=== PATIENT | male | born 1965 | race Caucasian/White ===

== ENCOUNTER → 2019-08-03 11:14 | Outpatient (BNVA) | payer MEDICARE, MEDICAID, SELFPAY | PROVIDERS: Family Provider Nurse Practitioner Family; PCP Nurse Practitioner Family; Visit Provider Nurse Practitioner | DX: F31.81 Bipolar II disorder (principal); F17.210 Nicotine dependence, cigarettes, uncomplicated | CPT/HCPCS: 99214; 99215 ==

== ENCOUNTER 2019-08-15 16:43 | Inpatient (IN) | payer MEDICARE, MEDICAID, SELFPAY ==
[2019-08-15 16:44] VITALS: BP 143/109; PULSE 106; RESP 18; TEMP 36.8; O2SAT 94; BMI 33.2
--- NOTE | 2019-08-15 16:56 | ED_ITS ---
Entered by Jessica Banegas, acting as scribe for Yvonne Almaguer MD, [facility] [place] HPI - Psych General: Chief Complaint: Psychiatric Symptoms Stated Complaint: SI Time Seen by Provider: 08/15/19 16:56 Source: patient Mode of arrival: EMS Limitations: no limitations History of Present Illness: HPI Narrative: 53 yo Male presents to ED with complaint of suicidal ideation. Pt states that he wants to talk to his psychiatrist because he was thinking about killing himself. Pt states that every cops in the community was there and he is here again. Pt states he doesn't want to discuss his plan and he tried for 6 days last time but some doctors brought him back. Claims he was in an ICU for 5 days. Pt states that he will kill himself in a few days. Pt states that he knows how to bullshit doctors and he will tell them he is feeling better so he can get out of here and get his plan together to kill himself. complaint: suicidal ideation Duration: constant and getting worse History of same: Yes Relieving factors: none Exacerbating factors: none Associated psychiatric symptoms: suicidal ideation Associated symptoms: Reports suicidal ideation Treatments prior to arrival: none If self harm: admits thoughts of self harm Review of Systems General: Reports: 10 or more systems reviewed and unremarkable except in HPI and below Const: Denies: fever, chills or body aches Eyes: Denies: change in vision, blurry vision or blind spots ENMT: Denies: throat pain Card: Denies: chest pain, palpitations, irregular heart rhythm, edema or swelling of feet/ankles Resp: Denies: shortness of breath, productive cough or non-productive cough GI: Denies: abdominal pain, nausea or vomiting : Denies: flank pain, difficulty urinating, painful urination, urinary frequency or urinary urgency Musc: Denies: neck pain, back pain, extremity pain or extremity swelling Skin/Breast: Denies: rash, itching or redness Neuro: Denies: headache, numbness in extremities or weakness in extremities Psych: Reports: suicidal ideation PFS ED PFSH: Statuses (acute, chronic, etc) shown below reflect problem list status as previously entered and may not be historically accurate Medical History Alcohol dependence, in remission (Acute) Bipolar II disorder (Acute) Nicotine dependence, cigarettes, uncomplicated (Acute) Social History Smoking and tobacco status: current every day smoker cigarettes Packs smoked per day: 1 Years cigarettes smoked: 40 Smoking risk assessment/counseling performed?: Yes Tobacco counseling given: counseling >3 minutes Alcohol intake: never Physical Exam Const: COMMON NORMALS: no apparent distress, average body habitus, oriented x3, no limitations, healthy appearing, alert and well nourished HENMT: COMMON NORMALS: normocephalic, head/scalp atraumatic, hearing grossly normal bilaterally, external ears normal, EAC's normal, TM's normal bilaterally, external nose normal, nasal mucous membranes and turbinates normal, moist oral mucous membranes, oropharynx normal, dentition normal and gingiva normal HEAD & SCALP: normocephalic and atraumatic NOSE: external nose normal and nasal mucous membranes and turbinates normal EXTERNAL EAR: Yes external ears normal EXTERNAL AUDITORY CANAL: EAC's normal TYMPANIC MEMBRANE: TM's normal bilaterally Eye: COMMON NORMALS: PERRL, EOMs intact bilaterally, conjunctivae normal, no scleral icterus, no papilledema, normal visual melendrez by confrontation and fundi normal bilaterally CONJUNCTIVA: Yes conjunctivae normal PUPIL: Yes PERRL DIRECT OPHTHALMOSCOPY: Yes no papilledema and Yes fundi normal bilaterally Neck/C-Spine: COMMON NORMALS: full ROM, supple, no meningeal signs, no JVD and no carotid bruits Chest: COMMONS NORMALS: inspection of chest normal and palpation of chest normal Resp: COMMON NORMALS: normal respiratory effort, no retractions, no use of accessory muscles, clear to auscultation bilaterally and percussion normal AUSCULTATION: clear to auscultation bilaterally PERCUSSION: percussion normal Cardio: COMMON NORMALS: no JVD, regular rate, regular rhythm, S1 normal heart sound, S2 normal heart sound, no gallops, no clicks, no murmurs, no rub and peripheral pulses 2+ throughout RATE: regular rate RHYTHM: regular rhythm HEART SOUNDS: S1 normal and S2 normal PERIPHERAL PULSES: pulses 2+ throughout GI: COMMON NORMALS: normal to inspection, nondistended, normoactive bowel sounds, soft to palpation, non-tender, no hepatosplenomegaly, no masses and no bruits PALPATION: Yes soft and Yes no hepatosplenomegaly : COMMON NORMALS: Yes no CVA tenderness BLADDER/KIDNEY EXAM: Yes no CVA tenderness Back/Pelvis: COMMON NORMALS: no CVA tenderness Extremity: COMMON NORMALS: normal to inspection, full ROM, normal capillary refill, no joint enlargement, no clubbing, cyanosis or edema, no calf tenderness and no pedal edema Neuro: COMMON NORMALS: oriented x3 SENSORIUM/ORIENTATION: Yes alert MENINGEAL SIGNS: Yes no meningeal signs Psych: THOUGHT CONTENT: Yes suicidality Skin: COMMON NORMALS: no rashes or lesions noted, no wounds, skin turgor normal, no jaundice, no petechiae and no mottling GENERAL SKIN EXAM: no rashes or lesions noted and turgor normal MDM - Psych MDM Narrative: Medical decision making narrative: Patient with suicidal ideation. He was medically cleared and is admitted to the neuropsychiatric unit for further evaluation and management. Lab Data: Labs: Lab Results 08/15/19 08/15/19 08/15/19 Range/Units 16:50 16:50 16:57 WBC 8.9 (4.0-10.0) 10^3/ uL RBC 5.12 (4.1-5.3) 10^6/u L Hgb 13.9 (11.7-16.6) g/dL Hct 42.7 (42.0-52.0) % MCV 83.4 (80-94) fL MCH 27.1 L (28.0-34.0) pg MCHC 32.6 (30.0-36.0) g/dL RDW 14.6 (12.1-15.1) % Plt Count 482 H (130-400) 10^3/c mm MPV 9.2 (7.4-10.4) fL Neut % (Auto) 54.4 % Lymph % (Auto) 34.7 % [place] % (Auto) 8.8 % Eos % (Auto) 1.2 % Baso % (Auto) 0.7 % Neut # (Auto) 4.8 (1.8-7.7) 10^3/u L Lymph # (Auto) 3.1 (0.8-4.8) 10^3/u L [place] # (Auto) 0.8 (0.2-0.9) 10^3/u L Eos # (Auto) 0.1 (0.0-0.8) 10^3/u L Baso # (Auto) 0.1 (0.0-0.1) 10^3/u L Nucleated RBC % (a uto) 0 % Nucleated RBCs # 0.0 /100WBC Sodium 139 (136-145) mmol/L Potassium 4.2 (3.5-5.1) mmol/L Chloride 103 (98-107) mmol/L Carbon Dioxide 19 L (22-29) mmol/L Anion Gap 21.2 H (5-19) BUN 8 (6-20) mg/dL Creatinine 1.0 (0.7-1.2) mg/dL GFR Calculation 77.9 L (90-130) mL/min Glucose 81 (74-109) mg/dL Calcium 10.2 H (8.6-10.0) mg/Dl Total Bilirubin 0.2 (0.15-1.2) mg/dL AST 19 (0-40) U/L ALT 20 (0-41) U/L Alkaline Phosphata se 73 (40-130) IU/L Total Protein 8.5 (6.6-8.7) g/dL Albumin 4.5 (3.5-5.2) g/dL Globulin 4.0 (1.3-4.6) g/dL Salicylates < 0.3 L (3-10) mg/dL Urine Opiates Scre en Negative (Negative) ng/mL Acetaminophen < 5.0 L (10-30) ug/mL Ur Barbiturates Sc reen Negative (Negative) ng/mL Ur Phencyclidine S crn Negative (Negative) ng/mL Ur Amphetamines Sc reen Negative (Negative) ng/mL U Benzodiazepines Scrn Negative (Negative) ng/mL Urine Cocaine Scre en Negative (Negative) ng/mL U Marijuana (THC) Screen Positive H (Negative) ng/mL Ethyl Alcohol 123 H (0-10) mg/dL Discharge Plan Discharge Patient Disposition: Admitted As Inpatient Clinical Impression: Suicidal ideation, Nicotine dependence, cigarettes, uncomplicated Condition: Stable Prescriptions: No Action simvastatin 20 mg tablet 20 mg PO ONCE RF: 0 Protonix [address] for susp in packet 40 mg PO QAM RF: 0 methocarbamol 500 mg tablet 500 mg PO BID PRNRF: 0 isosorbide dinitrate 30 mg tablet 30 mg PO DAILY RF: 0 lisinopril 20 mg tablet 20 mg PO ONCE RF: 0 clopidogrel [Plavix] 75 mg tablet 75 mg PO ONCE RF: 0 Symbicort 80-4.5 mcg/actuation HFA aerosol inhaler 2 puff INHALATION BID RF: 0 metoprolol tartrate 50 mg tablet 50 mg PO ONCE RF: 0 buspirone 10 mg tablet 10 mg PO BID Qty: 60 RF: 1 duloxetine [Cymbalta] 60 mg capsule,delayed release(DR/EC) 120 mg PO BID Qty: 60 RF: 1 gabapentin 800 mg tablet 800 mg PO TID Qty: 90 RF: 1 quetiapine [Seroquel] 25 mg tablet 25 mg PO BID PRN (Reason: anxiety) Qty: 60 RF: 1 clonazepam 0.5 mg tablet 0.25 mg PO BID PRN (Reason: anxiety) Qty: 60 RF: 1 Referrals: Geno Treadwell [Primary Care Provider] - Coding Level of Care Code ED Yard Spotter for Chg Fwd Exam Problem Focused The documentation recorded by the Bassam hayes Carmen, accurately reflects the service I personally performed and the decisions made by Tripp brock Adegoke I, MD, [facility] [place] Aug 15, 2019 16:43
[2019-08-15 17:11] LABS: Basophils # 0.1 10^3/uL (0.0-0.1); Basophils % 0.7 %; Eosinophils # 0.1 10^3/uL (0.0-0.8); Eosinophils % 1.2 %; Hematocrit 42.7 % (42.0-52.0); Hemoglobin 13.9 g/dL (11.7-16.6); Lymphocytes # 3.1 10^3/uL (0.8-4.8); Lymphocytes % 34.7 %; Mean Corpuscular HGB Conc 32.6 g/dL (30.0-36.0); Mean Corpuscular Hemoglobin 27.1 pg (28.0-34.0); Mean Corpuscular Volume 83.4 fL (80-94); Mean Platelet Volume 9.2 fL (7.4-10.4); Monocytes # 0.8 10^3/uL (0.2-0.9); Monocytes % 8.8 %; Neutrophils # 4.8 10^3/uL (1.8-7.7); Neutrophils % 54.4 %; Nucleated Red Blood Cells % 0 %; Platelet Count 482 10^3/cmm (130-400); Red Blood Count 5.12 10^6/uL (4.1-5.3); Red Cell Distribution Width 14.6 % (12.1-15.1); White Blood Count 8.9 10^3/uL (4.0-10.0)
[2019-08-15 17:16] LABS: Alanine Aminotransferase 20 U/L (0-41); Albumin Level 4.5 g/dL (3.5-5.2); Alcohol Level 123 mg/dL (0-10); Alkaline Phosphatase 73 IU/L (40-130); Anion Gap 21.2 (5-19); Aspartate Amino Transferase 19 U/L (0-40); Blood Urea Nitrogen 8 mg/dL (6-20); Calcium 10.2 mg/Dl (8.6-10.0); Carbon Dioxide 19 mmol/L (22-29); Chloride 103 mmol/L (98-107); Glomerular Filtration Rate 77.9 mL/min (90-130); Glucose 81 mg/dL (74-109); Potassium 4.2 mmol/L (3.5-5.1); Sodium 139 mmol/L (136-145); Total Bilirubin 0.2 mg/dL (0.15-1.2); Total Protein 8.5 g/dL (6.6-8.7)
[2019-08-15 17:18] LABS: Amphetamines Screen Urine Negative (Negative); Barbiturates Screen Urine Negative (Negative); Benzodiazepines Screen Urine Negative (Negative); Cocaine Screen Urine Negative (Negative); Opiate Screen Urine Negative (Negative); PCP Screen Urine Negative (Negative); THC Screen Urine Positive (Negative)
[2019-08-15 17:24] LABS: Acetaminophen < 5.0 ug/mL (10-30); Salicylate < 0.3 mg/dL (3-10)
[2019-08-15] MEDS: LORazepam 1 mg Tablet PO (17:24)
--- NOTE | 2019-08-15 17:32 | PC.NURSE ---
pt has 1:1 sitter at bedside. pt belongings removed. room stripped. pt placed in paper scrubs. pt appears anxious. will continue to monitor..
[2019-08-15] MEDS: nicotine 21 mg Patch 1 PATCH TRANSDERMA (18:13)
--- NOTE | 2019-08-15 18:37 | PC.NURSE ---
pt is still very anxious in room, pacing in room. ER physician notified. orders received
[2019-08-15] MEDS: LORazepam 1 mg Tablet 2 MG PO (18:41)
[2019-08-15 19:17] VITALS: RESP 16
[2019-08-15 19:42] VITALS: BP 140/100; PULSE 110; RESP 16; O2SAT 92
[2019-08-15 21:17] VITALS: BP 153/99; PULSE 101; RESP 18; TEMP 36.9; O2SAT 89
[2019-08-16 06:00] VITALS: BP 120/80; PULSE 85; RESP 23; TEMP 36.9; O2SAT 94
[2019-08-16] MEDS: metoprolol tartrate 50 mg Tablet PO (09:24)
[2019-08-16] MEDS: pantoprazole DR 40 mg Tablet PO (09:24)
[2019-08-16] MEDS: duloxetine 60 mg Capsule 120 MG PO ×2 (09:24→17:16)
[2019-08-16] MEDS: gabapentin 400 mg Capsule 800 MG PO ×3 (09:24→21:23)
[2019-08-16] MEDS: lisinopril 20 mg Tablet PO (09:24)
[2019-08-16] MEDS: clopidogrel 75 mg Tablet PO (09:24)
[2019-08-16] MEDS: BuSPIRONE 10 mg Tablet PO (09:24)
[2019-08-16] MEDS: quetiapine 25 mg Tablet PO (09:24)
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
[2019-08-16] MEDS: isosorbide dinitrate 20 mg Tablet 30 MG PO (09:56)
[2019-08-16] MEDS: acetaminophen 325 mg Tablet 650 MG PO (11:02)
[2019-08-16 14:00] VITALS: BP 104/66; PULSE 92; RESP 18; TEMP 37.1; O2SAT 96
[2019-08-16 19:56] VITALS: BP 126/87; PULSE 104; RESP 17; TEMP 36.7; O2SAT 97
[2019-08-16] MEDS: diazePAM 5 mg Tablet 10 MG PO (21:23)
[2019-08-17 06:00] VITALS: BP 135/86; PULSE 92; RESP 18; TEMP 37.7; O2SAT 93
[2019-08-17] MEDS: acetaminophen 325 mg Tablet 650 MG PO ×2 (08:15→12:22)
[2019-08-17] MEDS: pantoprazole DR 40 mg Tablet PO (09:09)
[2019-08-17] MEDS: gabapentin 400 mg Capsule 800 MG PO ×2 (09:10→15:15)
[2019-08-17] MEDS: clopidogrel 75 mg Tablet PO (09:10)
[2019-08-17] MEDS: metoprolol tartrate 50 mg Tablet PO (09:10)
[2019-08-17] MEDS: duloxetine 60 mg Capsule 120 MG PO (09:10)
[2019-08-17] MEDS: folic acid 1 mg Tablet PO (09:10)
[2019-08-17] MEDS: thiamine 100 mg Tablet PO (09:11)
[2019-08-17] MEDS: lisinopril 20 mg Tablet PO (09:11)
[2019-08-17] MEDS: multivitamin therapeutic Tablet 1 TAB PO (09:11)
[2019-08-17] MEDS: albuterol 8 gm MDI 2 PUFF INHALATION (09:22)
[2019-08-17 09:24] VITALS: PULSE 104; RESP 22; O2SAT 94
[2019-08-17 09:27] VITALS: PULSE 100
[2019-08-17] MEDS: isosorbide dinitrate 20 mg Tablet 30 MG PO (09:58)
--- NOTE | 2019-08-17 12:41 | P.DS_ITS ---
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 I got angry and wanted to talk to psychiatrist and I did not know what to do so I drank some beers and then I came to the emergency room. I really sorry. I'm doing fine now. History of present illness: Steven Levy is a 53 y.o. man With multiple prior psychiatric hospitalizations for Various reasons Who is once again admitted after he became volatile and reactive after a perceived insult, resulting in him ingesting alcohol. An affidavit was filed by the psychologist social at the [facility] subsequent due to a phone call that he had made to them., He was forced to go to the emergency room emergency room for support. He was reporting suicidal ideation there. An affidavit and in his esophagus chart. On 2 separate affidavits he refers to his intent to go to the hospital and lie to the doctor there and then get out so that he can go kill himself. The patient states that he has no intention of killing himself at this time. However he understands that this was a horrible mistake he made and is willing to remain here for the duration is 96 hour involuntary hold. He denies the presence of auditory or visual hallucinations.He denies regular alcohol use and says that he only uses it when he becomes angry. He said he only had only a few beers. His blood alcohol level on admission was 123. He generally denies symptoms of depression. He denies feeling sad and was daily basis. He has been hedonic capacity. He sleeps well. He only has suicidal thoughts when he gets angry and gets drunk. It would be his desire to have a medication that would break that pattern so that when he gets angry he can take it and he will call down and think rationally rather than making mistakes that require him to go into the hospital. We discussed his medication history. His explanation as to why he takes Seroquel is clear. He is on a low dose. It may help him sleep a little. He says that the buspirone does not help him at all. At his last outpatient appointment he was given lorazepam and he says he takes it occasionally but is very nonspecific about when he takes it. Laboratory Tests 08/15/19 08/15/19 16:50 16:57 Urine Opiates Screen Negative Ur Barbiturates Screen Negative Ur Phencyclidine Scrn Negative Ur Amphetamines Screen Negative U Benzodiazepines Scrn Negative Urine Cocaine Screen Negative U Marijuana (THC) Screen Positive H Ethyl Alcohol 123 H Emergency room physician note:HPI Narrative: 53 yo Male presents to ED with complaint of suicidal ideation. Pt states that he wants to talk to his psychiat rist because he was thinking about killing himself. Pt states that every hat copyist in the community was there and he is here again. Pt states he doesn't want to discuss his plan and he tried for 6 days last time but some doctors brought him back. Claims he was in an ICU for 5 days. Pt states that he will kill himself in a few days. Pt states that he knows how to bullshit doctors and he will tell them he is feeling better so he can get out of here and get his plan together to kill himself. Mental Status Exam: The patient is alert and interpersonally engaged. His attitude is obsequious.Information provided is internally consistent logical. However his stated intent to lie the staff when he gets to the hospital is noted. Eye contact is good. Appearance: hygiene is fair; no gross neurological deficits., gait is unremarkable; AIMS=0 Speech: Speech is of normal rate and rhythm and easily understood. Thought processes: Thought processes are abstract. Judgment Appears to be adequate for safety. Associations: intact Psychotic processes: There is no indication of guarding or paranoia. There is no attention to the internal stimuli. Auditory and visual hallucinations are denied. Judgment: Insight is fair. Problem solving skills are adequate for safety. Orientation: The patient is oriented to person, place time and situation. Memory: no deficits noted in immediate, intermediate, or remote spheres. Attention: The patient is alert and interpersonally engaged. Language: Verbalizations are coherent. Fund of knowledge: Fund of knowledge is adequate. Affect/Mood: Affect is consistent with a Euthymic mood. He denied suicidal ideation Affective range appropriate. Psychosis: perception unimpaired except through cognitive distortion; reality testing intact. Diagnoses: Adjustment disorder with disturbance of mood and conduct Alcohol intoxication Narcissistic personality traits Assessment: This pattern of becoming angry, drinking alcohol, and then making demands for attention to help calm himself down is well-established. However given his stated intent to lie to the staff so that he could leave and immediately kill himself requires further observation. Treatment plan: Due to the psychiatric conditions and treatment listed in the Assessment and Plan - the patient requires continued hospitalization. Will provide a safe and therapeutic environment for patient.. Will continue inpatient treatment to allow for medication adjustment and monitoring. Will continue q15 min safety checks. Will continue Cymbalta and monitor for medication side effects. He agreed to a trial of discontinuing clonazepam, BuSpar, and Seroquel in return for Valium 10 mg at bedtime the possibility of using it on a when necessary basis one or 2 times a week for this anger to try and break the cycle of alcohol use and hospital admission. By hospital day #3, sucidal ideaiton had resolved. He was intending to return home where he would be able to handle his stressors in a more adaptive manner and return to his regular medication regimen after seeing his psychiatrist at the [facility]. Involuntary Hold Information 96 Hour Hold: 96 Hour Involuntary Admission: Yes 96 Hour Hold Ending Date: 08/21/19 96 Hour Hold Ending Time: 18:57 Discharge Data Vitals: Last Vital Signs Temp 99.8 F H 08/17/19 06:00 Pulse 100 08/17/19 09:27 Resp 22 H 08/17/19 09:24 BP 135/86 08/17/19 06:00 Pulse Ox 94 08/17/19 09:24 Discharge Plan Discharge Patient Disposition: Home, Self-Care Condition: Stable Prescriptions: New diazepam 5 mg Tablet 10 mg PO BEDTIME Qty: 30 RF: 1 Continued simvastatin 20 mg tablet 20 mg PO ONCE RF: 0 Proton[address] for susp in packet 40 mg PO QAM RF: 0 methocarbamol 500 mg tablet 500 mg PO BID PRNRF: 0 isosorbide dinitrate 30 mg tablet 30 mg PO DAILY RF: 0 lisinopril 20 mg tablet 20 mg PO ONCE RF: 0 clopidogrel [Plavix] 75 mg tablet 75 mg PO ONCE RF: 0 Symbicort 80-4.5 mcg/actuation HFA aerosol inhaler 2 puff INHALATION BID RF: 0 metoprolol tartrate 50 mg tablet 50 mg PO ONCE RF: 0 duloxetine [Cymbalta] 60 mg capsule,delayed release(DR/EC) 120 mg PO BID Qty: 60 RF: 1 gabapentin 800 mg tablet 800 mg PO TID Qty: 90 RF: 1 Discontinued buspirone 10 mg tablet 10 mg PO BID Qty: 60 RF: 1 quetiapine [Seroquel] 25 mg tablet 25 mg PO BID PRN (Reason: anxiety) Qty: 60 RF: 1 clonazepam 0.5 mg tablet 0.25 mg PO BID PRN (Reason: anxiety) Qty: 60 RF: 1 Discharge Orders: Discharge Order (Routine); Ordered 08/17/19 Ordered By: Josr Kerr Referrals: Geno Treadwell [Primary Care Provider] - Discharge Diet: Regular Discharge Activity: Increase activity as tolerated Discharge Attestations NPU Time Spent in Discharge Care*: greater than 30 min Coding Level of Care Code Acute [place] Diagnoses Adjustment disorder with disturbance of conduct F43.24 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
[2019-08-17 14:07] VITALS: BP 135/86; PULSE 100; RESP 22; TEMP 37.7; O2SAT 94
[2019-08-17 14:14] VITALS: BP 135/86; PULSE 100; RESP 22; TEMP 37.7; O2SAT 94
[2019-08-17 14:17] VITALS: BP 135/86; PULSE 100; RESP 22; TEMP 36.4; O2SAT 94
== END 2019-08-17 16:27 | disposition home or self-care (01) | DRG 885 ==
LOC: ER 19:39 → NP 19:41
PROVIDERS: Physician Assistant; Admitting Provider Psychiatry & Neurology Psychiatry; Emergency Provider Family Medicine; Family Provider Nurse Practitioner Family; PCP Nurse Practitioner Family; Visit Provider Psychiatry & Neurology Psychiatry
DX: F31.81 Bipolar II disorder (principal); F17.210 Nicotine dependence, cigarettes, uncomplicated; F10.21 Alcohol dependence, in remission; F60.81 Narcissistic personality disorder; F43.25 Adjustment disorder with mixed disturbance of emotions and conduct
CPT/HCPCS: 12345; 36415; 80053; 80307; 85025; 94640; 99284; A9270; J3535